=== PATIENT | male | born 1975 | race Asian ===

== ENCOUNTER 2016-03-29 09:00 | Day surgery (SDC) | payer OTHER ==
[~2016-03-29 09:00] MED LIST: FENTANYL 250 MCG/5 ML AMP IV PRN; LACTATED RINGERS 1,000 ML IV SCH; MIDAZOLAM HCL 5 MG/5 ML VIAL IV PRN
[2016-03-29] MEDS ORDERED: IV START KIT ONE (09:36)
[2016-03-29] MEDS ORDERED: SODIUM CHLORIDE 0.9% 1,000 ML ONE (09:36)
[2016-03-29] MEDS ORDERED: KETOROLAC TROMETHAMINE 30 MG/ML 1 ML VIAL IV ONE (10:10)
[2016-03-29] MEDS ORDERED: PROPOFOL 20 ML IV ONE (10:33)
[2016-03-29] MEDS ORDERED: MEPERIDINE 25 MG/ML SYRINGE ONE (10:34)
[2016-03-29] MEDS ORDERED: SODIUM CHLORIDE 0.9% 1,000 ML IV SCH (11:15)
--- NOTE | 2016-04-01 12:35 | SURGPATH ---
[facility] [address] [place] [id number] Patient Name: JACQUELINE CALDERÓN MR#: [id number] : 1975 Gender: M Specimen #: [id number] Collected: 03/29/2016 Received: 03/31/2016 Reported: 04/01/2016 Submitting Phys: ZAN BEST Copy To Phys: LUCAS BUTT [facility] Clinical History / Pre-Operative Diagnosis: RECTAL BLEEDING WITH PERIUMBILICAL PAIN AND DIARRHEA; RULE OUT COLITIS Specimen Source / Surgical Procedure Performed: #1-CECAL BIOPSY; #2-SIGMOID BIOPSY AT 30 CM; #3-RECTAL POLYP AT 3 CM Interpretation: 1. CECAL BIOPSY: - NO SIGNIFICANT PATHOLOGIC ABNORMALITIES IDENTIFIED. 2. SIGMOID BIOPSY AT 30 CM: - NO SIGNIFICANT PATHOLOGIC ABNORMALITIES IDENTIFIED. 3. RECTAL POLYP AT 3 CM: - FECAL MATERIAL ONLY; NO COLONIC MUCOSA PRESENT FOR EVALUATION. Electronically Signed Out Courtney Abrams M.D. Gross Description: #1 The specimen is received in a formalin filled container labeled with the patient's name and "cecal biopsy". A single richardson biopsy is 0.5 cm. Totally embedded in cassette #1. #2 The specimen is received in a formalin filled container labeled with the patient's name and "sigmoid biopsy at 30 cm". Two richardson biopsies are 0.4 and 0.5 cm. Totally embedded in cassette #2. #3 The specimen is received in a formalin filled container labeled with the patient's name and "rectal polyp at 3 cm". A small richardson biopsy is 0.1 cm. Totally embedded in cassette #3. Margie Moody Microscopic Description: 1. Sections of the cecal biopsy show benign colonic mucosa with no significant pathologic changes. 2. Sections of the sigmoid biopsy at 30 cm show benign colonic mucosa with no significant pathologic changes. 3. Sections of the rectal polyp at 3 cm show a small amount of fecal material. No colonic mucosa is present for evaluation. 1: 33759 2: 04520 3: 13234 R19.7 R10.33
== END 2016-03-29 11:45 | disposition home or self-care (01) ==
LOC: SDC 09:00
PROVIDERS: ATTEND Internal Medicine Gastroenterology
PROC: 0DBP8ZX Excision of Rectum, Via Natural or Artificial Opening Endoscopic, Diagnostic (ICD-10-PCS; principal; 2016-03-29)
PROC: 0DBH8ZX Excision of Cecum, Via Natural or Artificial Opening Endoscopic, Diagnostic (ICD-10-PCS; 2016-03-29)
PROC: 0DBN8ZX Excision of Sigmoid Colon, Via Natural or Artificial Opening Endoscopic, Diagnostic (ICD-10-PCS; 2016-03-29)
DX: K64.1 Second degree hemorrhoids (principal); K59.8 Other specified functional intestinal disorders; Z87.891 Personal history of nicotine dependence; E11.9 Type 2 diabetes mellitus without complications; Z79.84 Long term (current) use of oral hypoglycemic drugs; I10 Essential (primary) hypertension; J98.9 Respiratory disorder, unspecified; G43.909 Migraine, unspecified, not intractable, without status migrainosus
CPT/HCPCS: 45385; 45380; J2175; J1885; J7030

== ENCOUNTER 2016-05-07 09:05 | Emergency (ER) | payer OTHER ==
--- NOTE | 2016-05-07 10:28 | US ---
EXAMINATION: DUPLEX VENOUS DOPPLER ULTRASOUND:LEFT LOWER EXTREMITY CLINICAL INDICATION: Left leg pain and knee pain for one day. Recent fall injury. COMPARISON: None TECHNIQUE: Both grayscale imaging and Doppler interrogation with spectral analysis and color flow was performed. Compression and flow with augmentation was also utilized. The common femoral vein to the posterior tibial and peroneal veins were assessed. FINDINGS:Appropriate compressibility and flow is demonstrated in the left common femoral, superficial femoral, popliteal, and peroneal and posterior tibial veins proximally. Normal Doppler flow with augmentation was also elicited. There is a fluid collection closely approximating the left knee that measures 3.8 x 1.3 x 3.5 cm. No vascular lesions are identified. IMPRESSION: 1. No evidence of left lower extremity deep venous thrombosis. 2. Probable Cook's cyst left knee measuring up to 3.8 cm in size. The findings were uploaded to the electronic medical record for review at approximately 10:28 AM 05/07/2016
--- NOTE | 2016-05-07 10:29 | RAD ---
EXAMINATION:LOWER LEG LEFT Two- Views CLINICAL INDICATION:Leg pain COMPARISON:None FINDINGS: No fracture or focal destruction is identified. The joint space relationships of the knee and ankle are maintained numerous small pretibial soft tissue calcifications are noted. This may reflect vascular stasis changes. No worrisome soft tissue abnormality is appreciated. IMPRESSION: No evidence of left lower committee fracture or significant arthritic change. There are findings which may reflect venous vascular stasis.
== END 2016-05-07 11:18 | disposition home or self-care (01) ==
LOC: ED 09:05
DX: M79.605 Pain in left leg (principal); E11.9 Type 2 diabetes mellitus without complications; I10 Essential (primary) hypertension; Z79.84 Long term (current) use of oral hypoglycemic drugs; W17.89XA Other fall from one level to another, initial encounter